=== PATIENT | female | born 1965 | race Caucasian/White ===

== ENCOUNTER 2016-10-18 21:42 | Emergency (ER) | payer OTHER ==
[2016-10-18] MEDS ORDERED: Ketorolac 60 MG/2 ML SDV IM ONE (22:08)
[2016-10-18 22:23] VITALS: BP 123/65
[2016-10-18] MEDS ORDERED: traMADol 50 MG Tab PO ONE (22:25)
--- NOTE | 2016-10-19 02:49 | ER ---
DATE SEEN: 10/18/2016 REASON FOR VISIT: Pain, right ankle. HISTORY OF PRESENT ILLNESS: This is a 51-year-old female, who has right ankle pain since this afternoon. No trauma. It is swollen. She cannot move the toes. She has a history of rheumatoid arthritis. REVIEW OF SYSTEMS: No fever. MEDICATIONS: Reviewed. ALLERGIES: Reviewed. PHYSICAL EXAMINATION: GENERAL: She is not in distress. VITAL SIGNS: Her blood pressure is normal. Temperature 97.3. EXTREMITIES: Right ankle revealed mild synovitis, tenderness to palpation. Decreased range of motion, but normal peripheral pulses. IMPRESSION: Right ankle pain. PLAN: I suspect a flare of RA. I gave her ketorolac 60 mg IM and tramadol 50 mg three times a day to go home with ice and rest. Follow up p.r.n. Time seen was 2200. /[id number] NARA/MELIDA
== END 2016-10-18 22:35 | disposition home or self-care (01) ==
LOC: FB.ED 21:42
DX: M25.571 Pain in right ankle and joints of right foot (principal); M06.9 Rheumatoid arthritis, unspecified
CPT/HCPCS: 96372; 99283; A9270; J1885

== ENCOUNTER 2017-02-25 20:15 | Emergency (ER) | payer OTHER ==
--- NOTE | 2017-02-25 21:06 | EDM.PDOC ---
ED HPI GENERAL MEDICAL PROBLEM - General Chief Complaint: Abdominal Pain Stated Complaint: LEFT SIDE ABD PAIN Time Seen by Provider: 02/25/17 20:45 Source of Information: Reports: Patient, Old Records, RN History Limitations: Reports: No Limitations - History of Present Illness INITIAL COMMENTS - FREE TEXT/NARRATIVE: 51 yo female with mild LLQ abdominal pain today. No nausea. No fever or vomiting. No dysuria. Pain is constant, but changes a little with position changes. Stools looser than normal. No bleeding. Only past surgery was a cholecystectomy. Onset: Today Onset Date: 02/25/17 Onset Time: 12:00 Duration: Hour(s):, Constant Location: Reports: Abdomen (LLQ) Quality: Reports: Ache Severity: Mild Improves with: Reports: None Worsens with: Reports: Other (sitting) Context: Reports: Other (unknown) Associated Symptoms: Reports: No Other Symptoms Treatments AIR CARGO SPECIALIST SUPERVISOR: Reports: Other (see below) (none) L lower abdomen Pain Score (Numeric/FACES): 2 - Related Data Allergies Allergy/AdvReac Type Severity Reaction Status Date / Time tetanus and diphtheria Allergy Swelling Verified 02/25/17 20:25 toxoids Home Meds: Home Meds Amitriptyline [Elavil] 10 mg PO BEDTIME 04/15/16 [History] Diclofenac Sodium [Voltaren] 75 mg PO BID PRN 04/15/16 [History] Escitalopram [Lexapro] 10 mg PO DAILY 04/15/16 [History] buPROPion [Wellbutrin XL] 300 mg PO DAILY 04/15/16 [History] rOPINIRole HCl [Requip] 1 mg PO 18 04/15/16 [History] Adalimumab [Humira] 40 mg SQ .TWICE A MONTH 10/18/16 [History] rOPINIRole HCl [Requip] 1 mg PO 199902/25/17 [History] rOPINIRole HCl [Requip] 3 mg PO 212902/25/17 [History] tiZANidine [Zanaflex] 4 mg BID PRN 02/25/17 [History] Past Medical History Respiratory History: Reports: Asthma Gastrointestinal History: Reports: Cholelithiasis, Irritable Bowel Syndrome BACKGROUND CHECK COORDINATOR History: Reports: Musculoskeletal History: Reports: Back Pain, Chronic, RA Other Musculoskeletal History: BACK FUSION Neurological History: Reports: Concussion, Migraines Psychiatric History: Reports: Anxiety, Depression Endocrine/Metabolic History: Reports: Obesity/BMI 30+ - Infectious Disease History Infectious Disease History: Reports: Chicken Pox - Past Surgical History Head Surgeries/Procedures: Reports: None GI Surgical History: Reports: Cholecystectomy, Hernia Repair/Other Female Surgical History: Reports: Hysterectomy Neurological Surgical History: Reports: Spinal Fusion Musculoskeletal Surgical History: Reports: None Social & Family History - Family History Family Medical History: Noncontributory - Tobacco Use Smoking Status *Q: Current Every Day Smoker Years of Tobacco use: 25 Packs/Tins Daily: 0.5 - Caffeine Use Caffeine Use: Reports: Coffee, Soda - Recreational Drug Use Recreational Drug Use: No ED ROS GENERAL - Review of Systems Review Of Systems: See Below Constitutional: Reports: No Symptoms HEENT: Reports: No Symptoms Respiratory: Reports: No Symptoms Cardiovascular: Reports: No Symptoms GI/Abdominal: Reports: Abdominal Pain : Reports: No Symptoms Musculoskeletal: Reports: No Symptoms Skin: Reports: No Symptoms Neurological: Reports: No Symptoms ED EXAM, GI/ABD - Physical Exam Exam: See Below Exam Limited By: No Limitations General Appearance: Alert, WD/WN, No Apparent Distress Eyes: Bilateral: Normal Appearance Ears: Normal External Exam, Normal Canal, Hearing Grossly Normal Nose: Normal Inspection, No Blood Throat/Mouth: Normal Inspection, Normal Lips, Normal Oropharynx, Normal Voice, No Airway Compromise Head: Atraumatic, Normocephalic Neck: Normal Inspection Respiratory/Chest: No Respiratory Distress, Lungs Clear, Normal Breath Sounds, No Accessory Muscle Use Cardiovascular: Regular Rate, Rhythm, No Edema GI/Abdominal Exam: Normal Bowel Sounds, Soft, Non-Tender, No Distention Back Exam: Normal Inspection. No: CVA Tenderness (R), CVA Tenderness (L) Extremities: Normal Inspection, Normal Range of Motion, Non-Tender, No Pedal Edema Neurological: Alert, Oriented, CN II-XII Intact, Normal Cognition, No Motor/ Sensory Deficits Psychiatric: Normal Affect, Normal Mood Skin Exam: Warm, Dry, Intact, Normal Color, No Rash Lymphatic: No Adenopathy Course - Vital Signs Last Recorded V/S: Last Vital Signs Temp 37.1 C 02/25/17 20:15 Pulse 59 L 02/25/17 20:15 Resp 18 02/25/17 20:15 BP 131/68 02/25/17 20:15 Pulse Ox 100 02/25/17 20:15 - Orders/Labs/Meds Orders: Active Orders 24 hr Category Date Time Status Abdomen 1V Flat [CR] Stat Exams 02/25/17 22:02 Taken Labs: Laboratory Tests 02/25/17 02/25/17 Range/Units 20:53 21:40 WBC 9.5 (4.5-12.0) X10-3/uL RBC 4.46 (3.23-5.20) x10(6)uL Hgb 13.5 (11.5-15.5) g/dL Hct 39.3 (30.0-51.3) % MCV 88.1 (80-96) fL MCH 30.3 (27.7-33.6) pg MCHC 34.4 (32.2-35.4) g/dL RDW 12.9 (11.5-15.5) % Plt Count 248 (125-369) X10(3)uL Urine Color Yellow (YELLOW) Urine Appearance Clear (CLEAR) Urine pH 6.0 (5.0-6.5) Ur Specific [place] 1.015 (1.010-1.025) Urine Protein Negative (NEGATIVE) mg/dL Urine Glucose (UA) Normal (NEGATIVE) mg/dL Urine Ketones Negative (NEGATIVE) mg/dL Urine Occult Blood Negative (NEGATIVE) Urine Nitrite Negative (NEGATIVE) Urine Bilirubin Negative (NEGATIVE) Urine Urobilinogen Normal (NEGATIVE) mg/dL Ur Leukocyte Esterase Negative (NEGATIVE) Urine RBC 0-5 (0) Urine WBC 0-5 (0) Ur Squamous Epith Cells Occasional (NS,R,O) Urine Bacteria Rare H (NS) Meds: Medications Discontinued Medications Generic Name Dose Route Start Last Admin Trade Name Freq PRN Reason Stop Dose Admin Ketorolac Tromethamine 30 mg 02/25/17 21:34 02/25/17 21:43 Toradol IM 02/25/17 21:35 30 mg ONETIME ONE Administration - Radiology Interpretation Free Text/Narrative:: single view abdomen-no pathology noted. Departure - Departure Time of Disposition: 22:25 Disposition: Home, Self-Care 01 Condition: Fair Clinical Impression: LLQ abdominal tenderness Qualifiers: Presence of rebound: absent Qualified Code(s): R10.814 - Left lower quadrant abdominal tenderness - Discharge Information Referrals: Yina Verdugo NP [Primary Care Provider] - Forms: ED Department Discharge - My Orders Last 24 Hours: My Active Orders 02/25/17 22:02 Abdomen 1V Flat [CR] Stat - Assessment/Plan Last 24 Hours: My Active Orders 02/25/17 22:02 Abdomen 1V Flat [CR] Stat
[2017-02-25] MEDS ORDERED: Ketorolac 30 MG/ML SDV IM ONE (21:34)
[2017-02-25] MEDS ORDERED: Acetaminophen 500 MG Tab PO ONE (22:23)
[2017-02-25 22:37] VITALS: BP 130/68
--- NOTE | 2017-02-26 10:58 | CR ---
INDICATION: Left lower quadrant abdominal pain. ABDOMEN: Two supine images of the abdomen were obtained 02/25/2017 and compared with 01/08/2011, again revealing fusion at the L4-5 level with rods and pedicle screws remaining intact. A mass in the pelvis is compatible with slightly distended urinary bladder. The pattern of gas and feces is nonspecific as visualized with supine imaging. No organomegaly, mass lesions, or free fluid collections were identified. No pathologic calcifications were seen. Progressive disk disease is suggested at L3-4. IMPRESSION: Nonacute abdomen. MTDD
== END 2017-02-25 22:40 | disposition home or self-care (01) ==
LOC: FB.ED 20:15
DX: R10.814 Left lower quadrant abdominal tenderness (principal); J45.909 Unspecified asthma, uncomplicated; F41.9 Anxiety disorder, unspecified; F32.9 Major depressive disorder, single episode, unspecified; E66.9 Obesity, unspecified; F17.210 Nicotine dependence, cigarettes, uncomplicated; Z90.710 Acquired absence of both cervix and uterus; Z88.8 Allergy status to other drugs, medicaments and biological substances; Z79.899 Other long term (current) drug therapy
CPT/HCPCS: 36415; 74000; 81001; 85027; 96372; 99284; A9270; J1885

== ENCOUNTER 2018-06-13 00:38 | Emergency (ER) | payer BC, OTHER ==
[2018-06-13] MEDS ORDERED: Sulfamethoxazole/Trimethoprim 800-160 MG Tab PO ONE (00:39)
[2018-06-13 02:29] VITALS: BP 117/50
--- NOTE | 2018-06-13 04:42 | ER ---
DATE SEEN: 06/13/2018 CHIEF COMPLAINT: Pain in ankle. HISTORY OF PRESENT ILLNESS: This is a 53-year-old complaining of left ankle pain for a day, mild to moderate, worse with weightbearing. She had swelling and redness. PAST MEDICAL HISTORY: Rheumatoid arthritis on DMARDs. ALLERGIES: Tetanus. REVIEW OF SYSTEMS: No systemic symptoms of fever, chills. PHYSICAL EXAMINATION: VITAL SIGNS: Afebrile. Blood pressure is normal. Pulse is 67. EXTREMITIES: Left leg revealed redness of the dorsum extending to the ankle joint. There was no purulent drainage. IMPRESSION: Nonpurulent cellulitis. TREATMENT: Bactrim DS b.i.d., warm compresses and elevation, Tylenol as needed. /[id number] NARA/MELIDA
== END 2018-06-13 01:52 | disposition home or self-care (01) ==
LOC: FB.ED 00:38
DX: L03.116 Cellulitis of left lower limb (principal); M06.9 Rheumatoid arthritis, unspecified
CPT/HCPCS: 99283; A9270

== ENCOUNTER 2021-03-21 16:54 | Emergency (ER) | payer SELFPAY ==
[2021-03-21] MEDS ORDERED: Acetaminophen/HYDROcodone 325-5 MG Tab PO STA (17:08)
[2021-03-21 17:51] VITALS: BP 147/88; PULSE 73
--- NOTE | 2021-03-21 18:49 | EDM.PDOC ---
ED HPI GENERAL MEDICAL PROBLEM - General Chief Complaint: Lower Extremity Injury/Pain Stated Complaint: hurt knee Time Seen by Provider: 03/21/21 17:05 History Limitations: Reports: No Limitations - History of Present Illness INITIAL COMMENTS - FREE TEXT/NARRATIVE: Patient presented to the ED because of left knee pain. She hit her left knee against the metal of her truck. She c/o 10 pain. Left Leg Pain Score (Numeric/FACES): 15 - Related Data Allergies Allergy/AdvReac Type Severity Reaction Status Date / Time amoxicillin [From Augmentin] Allergy Diarrhea Verified 03/21/21 18:37 clavulanic acid Allergy Diarrhea Verified 03/21/21 18:37 [From Augmentin] tetanus and diphtheria Allergy Swelling Verified 03/21/21 18:37 toxoids Home Meds: Home Meds Escitalopram [Lexapro] 10 mg PO DAILY 04/15/16 [History] buPROPion [Wellbutrin XL] 300 mg PO DAILY 04/15/16 [History] Adalimumab [Humira] 40 mg SQ .TWICE A MONTH 10/18/16 [History] tiZANidine [Zanaflex] 4 mg BID PRN 02/25/17 [History] Gabapentin [Neurontin] 300 mg BEDTIME 06/13/18 [History] Pramipexole [Mirapex] 0.5 mg PO BEDTIME 06/13/18 [History] atorvaSTATin Calcium [Lipitor] 20 mg PO DAILY 06/13/18 [History] Omeprazole 20 mg PO DAILY #10 capsule.dr 03/02/19 [Rx] Ibuprofen 800 mg PO Q8H PRN #30 tablet 03/21/21 [Rx] traMADol [Ultram] 100 mg PO Q8H PRN #15 tab 03/21/21 [Rx] Past Medical History Cardiovascular History: Reports: High Cholesterol, Hypertension Respiratory History: Reports: Asthma Gastrointestinal History: Reports: Cholelithiasis, Irritable Bowel Syndrome LEAD NETWORK 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 LEAD NETWORK ARCHITECT History: a1 Musculoskeletal History: Reports: Back Pain, Chronic, RA Other Musculoskeletal History: BACK FUSION Neurological History: Reports: Concussion, Migraines Psychiatric History: Reports: Anxiety, Depression Endocrine/Metabolic History: Reports: Obesity/BMI 30+ - Infectious Disease History Infectious Disease History: Reports: Chicken Pox - Past Surgical History Head Surgeries/Procedures: Reports: None Cardiovascular Surgical History: Reports: None GI Surgical History: Reports: Cholecystectomy, Hernia Repair/Other Female Surgical History: Reports: Hysterectomy Neurological Surgical History: Reports: Spinal Fusion Musculoskeletal Surgical History: Reports: None Social & Family History - Family History Family Medical History: No Pertinent Family History - Tobacco Use Tobacco Use Status *Q: Unknown Ever Used Tobacco - Caffeine Use Caffeine Use: Reports: Coffee Review of Systems - Review of Systems Review Of Systems: See Below Constitutional: Reports: No Symptoms Eyes: Reports: No Symptoms Ears: Reports: No Symptoms Nose: Reports: No Symptoms Mouth/Throat: Reports: No Symptoms Respiratory: Reports: No Symptoms Cardiovascular: Reports: No Symptoms GI/Abdominal: Reports: No Symptoms Genitourinary: Reports: No Symptoms Musculoskeletal: Reports: No Symptoms, Other (left knee pain) Skin: Reports: No Symptoms Neurological: Reports: No Symptoms Psychiatric: Reports: No Symptoms ED EXAM, GENERAL - Physical Exam Exam: See Below Exam Limited By: No Limitations General Appearance: Alert, No Apparent Distress Ears: Normal External Exam, Normal Canal Nose: Normal Inspection, Normal Mucosa, No Blood Throat/Mouth: Normal Inspection, Normal Lips, Normal Teeth Head: Atraumatic, Normocephalic Neck: Normal Inspection, Supple, Non-Tender, Full Range of Motion Respiratory/Chest: No Respiratory Distress, Lungs Clear, Normal Breath Sounds, No Accessory Muscle Use, Chest Non-Tender Cardiovascular: Normal Peripheral Pulses, Regular Rate, Rhythm, No Edema, No Gallop, No JVD, No Murmur, No Rub GI/Abdominal: Normal Bowel Sounds, Soft, Non-Tender, No Organomegaly, No Distention, No Abnormal Bruit, No Mass Back Exam: Normal Inspection, Full Range of Motion Extremities: Normal Inspection, No Pedal Edema, Normal Capillary Refill, Other (tenderness anterior and lateral aspect of left knee.) Neurological: Alert, Oriented, CN II-XII Intact, Normal Cognition, Normal Reflexes, No Motor/Sensory Deficits Psychiatric: Normal Affect Skin Exam: Warm Course - Vital Signs Text/Narrative:: Left knee xray-see result [place] 5 mg, 2 PO x1 Last Recorded V/S: Last Vital Signs Temp 37.2 C 03/21/21 16:59 Pulse 73 03/21/21 17:00 Resp 16 03/21/21 17:00 BP 147/88 H 03/21/21 17:00 Pulse Ox 73 L 03/21/21 17:00 - Orders/Labs/Meds Orders: Active Orders 24 hr Category Date Time Status Knee 3V Lt [CR] Stat Exams 03/21/21 17:37 Taken Meds: Medications Discontinued Medications Generic Name Dose Route Start Last Admin Trade Name Berenice PRN Reason Stop Dose Admin Hydrocodone Bitart/Acetaminophen 2 tab 03/21/21 17:08 03/21/21 17:15 Acetaminophen/Hydrocodone 325-5 Mg Tab PO 03/21/21 17:09 2 tab NOW STA Administration Departure - Departure Time of Disposition: 19:00 Disposition: Home, Self-Care 01 Condition: Good Clinical Impression: Left knee injury - Discharge Information Prescriptions: Ibuprofen 800 mg PO Q8H PRN #30 tablet PRN Reason: Pain traMADol [Ultram] 100 mg PO Q8H PRN #15 tab PRN Reason: Pain Instructions: Contusion, Knee Sprain, Adult, [id number] Referrals: Yina Verdugo LITHOGRAPH OPERATOR [Primary Care Provider] - Forms: ED Department Discharge Additional Instructions: Please read discharge instructions on knee injury and contusion Apply ice Use your crutches until your knee feels better Take all the following medication at the same time for better pain relief: Tramadol 100 mg, ibuprofen 800 mg, tylenol 1000 mg every 8 hours as needed for pain Follow up as needed Sepsis Event Note (ED) - Evaluation Sepsis Screening Result: No Definite Risk - My Orders Last 24 Hours: My Active Orders 03/21/21 17:37 Knee 3V Lt [CR] Stat - Assessment/Plan Last 24 Hours: My Active Orders 03/21/21 17:37 Knee 3V Lt [CR] Stat
--- NOTE | 2021-03-21 19:35 | CR ---
INDICATION: Left knee injury - patellar pain in distal thigh muscles. LEFT KNEE: AP, lateral and patellar sunrise views of the left knee were obtained 03/21/21 - no comparisons. There are some dystrophic calcifications anteriorly in the tendinous and muscle insertion area, which likely represent posttraumatic change from previous injury with dystrophic calcifications secondarily. There is a moderately large spur at the tendinous insertion at the patella along its anterior cranial aspect. There are some mild degenerative changes at the patellofemoral joint with the patellofemoral joint space well maintained. There is some mild hypertrophic change at the medial intracondylar spine with femorotibial joint spaces appearing fairly well maintained. A definite acute fracture or dislocation was not identified. If symptoms persist - if occult fracture site is suspected clinically, reexamination in 10 to 14 days, or more advanced imaging, may be helpful. MTDD
== END 2021-03-21 19:31 | disposition home or self-care (01) ==
LOC: FB.ED 16:54
DX: S89.92XA Unspecified injury of left lower leg, initial encounter (principal); E78.00 Pure hypercholesterolemia, unspecified; I10 Essential (primary) hypertension; E66.9 Obesity, unspecified; Z68.30 Body mass index [BMI] 30.0-30.9, adult; Z88.0 Allergy status to penicillin; Z88.7 Allergy status to serum and vaccine; Z79.899 Other long term (current) drug therapy; W22.09XA Striking against other stationary object, initial encounter
CPT/HCPCS: 73562; 99283; A9270; 73564-LT